=== PATIENT | female | born 1980 | race Caucasian/White ===

== ENCOUNTER → 2017-05-04 | Outpatient (CLI) | payer BC ==
[~2017-05-04] MED LIST: LOVENOX 3030 MG/0.3 SQ; PRENATAL1 TA3 PO; ZANTAC 150MG T150 MG PO
== END ==
LOC: COL.RAD 07:54
DX: N97.1 Female infertility of tubal origin (principal); Z90.721 Acquired absence of ovaries, unilateral
CPT/HCPCS: Q9967